=== PATIENT | male | born 1950 | race Caucasian/White ===

== ENCOUNTER 2018-02-13 12:33 | Inpatient (IN) | payer MEDICARE, OTHER ==
[~2018-02-13] VITALS: Ht 182.9 cm; Wt 90.7 kg
--- NOTE | ~2018-02-13 | MORECARE ---
CASE MANAGEMENT DISCHARGE SUMMARY PATIENT: CARY SAMANIEGO UNIT: [id number] ADM DATE: 02/13/18 AGE: 67 : 48 SEX: M ROOM/BED: D.2213 AUTHOR: NICKIE, POLITICAL CONSULTANT PHYSICIAN: REFERRING PHYSICIAN: MANISHA ARMSTRONG MD DATE OF SERVICE: 02/13/18 Discharge Plan Patient Name: CARY SAMANIEGO Facility: [facility]:[place] : 1950 Planned Disposition: Anticipated Discharge Date: Discharge Date: 02/16/2018 Expected LOS: 0 Initial Reviewer: [email or web address] Initial Review Date: 02/16/2018 Generated: 02/19/18 11:07 am Comments DCP- Discharge Planning Updated by [email or web address]: Julianna Zafar on 02/16/18 1:[address] CM contacted [facility] and patient to be admitted tomorrow. [facility] contacted for Walker and docs sent. Zeynep at [facility] will have walker sent to patients room at hospital. Home health will see patient tomorrow at his home. Docs faxed to [facility] and [facility]. CM will continue to follow and assist as needed with dc planning/needs. DCP- Discharge Planning Updated by [email or web address]: Julianna Zafar on 02/16/18 9:[address] patient choice form signed. Patient chose [facility] in [place]. CM spoke with Michelle at [facility] and faxed referral documents. Michelle states she will get back with CM after looking over referral. DCP- Discharge Planning Updated by [id number]: Julianna Zafar on 02/16/18 8:[address] Patient Name: CARY SAMANIEGO Admission Status: ER Accout number: [id number] Admission Date: 02-13-2018 : 1950 Admission Diagnosis: Attending: MANISHA ARMSTRONG Current LOS: 3 Anticipated DC Date: Planned Disposition: Primary Insurance: MEDICARE A & B Discharge Planning Comments: CM met with patient about discharge planning. Patient plans to discharge to home. States lives at home alone. States at time of discharge he will have a friend transport him home. He states his home environment is safe. He does have 2 steps going into house from garage. Patient will need rolling walker for home. Patient states he feels he may need home health when he gets home. States unable to go to outpatient physical therapy at this time. IMM explained and served to patient. CM will continue to follow and assist as needed with discharge planning/needs. Pit Operator: Julianna Zafra DCPIA - Discharge Planning Initial Assessment Updated by [email or web address]: Julianna Zafar on 02/16/18 9:39 am * Is the patient Alert and Oriented? Yes * How many steps to enterexit or inside your home? * PCP Pulig * Pharmacy Online pharmacy * Preadmission Environment Home Alone * ADLs Partial Dependent * Partial ADLs (Assistance needed) Ambulation * Equipment Glucometer Grab Bars * Other Equipment States needs walker for home. * List name and contact numbers for known caregivers / representatives who currently or will assist patient after discharge: Manisha Daniel, Friend, * Verbal permission to speak to the caregivers and representatives has been obtained from the patient. No * Community resources currently utilized None * Additional services required to return to the preadmission environment? Yes * Can the patient safely return to the preadmission environment? Yes * Has this patient been hospitalized within the prior 30 days at any hospital? No External [facility]iders [facility] Next Contact Date: Service Request Date: Service Type: Resolution: Reviewer: Comments: [facility] Next Contact Date: Service Request Date: Service Type: Resolution: Reviewer: Comments: [facility] Contact Date: Service Request Date: Service Type: Resolution: Reviewer: Comments: Coverage Notice Reviewer: [email or web address] Lanette Zafar Notice Issued Date-Time: 02/16/2018 9:39 Notice Type: IM Discharge Notice Notice Delivered To: Patient Relationship to Patient: Self Bandage Wrapping Machine Operator Name: Delivery Method: HAND - Hand Delivered Stefanie Days: Prior Verbal Notification: Recipient Understood Notice: Yes Recipient Signature: Yes Med Rec Note Co-signed by Attending: Coverage Notice Comment: Reviewer: [id number] Lanette Zafar Notice Issued Date-Time: 02/16/2018 14:38 Notice Type: Patient Choice Letter Notice Delivered To: Patient Relationship to Patient: Self Bandage Wrapping Machine Operator Name: Delivery Method: HAND - Hand Delivered Stefanie Days: Prior Verbal Notification: Recipient Understood Notice: Yes Recipient Signature: Yes Med Rec Note Co-signed by Attending: Coverage Notice Comment: [facility] chosen for home health. Patient Name: CARY SAMANIEGO Page [phone] All edits/amendments must be made on the electronic document DICTATION DATE: 02/19/18 1007 COMPOSITION WORKER: 02/19/18 1007 RPT#: [id number] DC DATE:02/16/18 STATUS: DIS IN [facility] [address] [place] [address] END OF REPORT
--- NOTE | ~2018-02-13 | OP ---
PATIENT NAME: CARY SAMANIEGO MEDICAL RECORD: [id number] :[birth year] LOCATION:D.MS [id number] ADMISSION DATE:02/13/18 SURGEON: LEO MONTIEL, DATE OF OPERATION: 02/13/2018 PROCEDURE PREFORMED: Left tibia intramedullary nailing. PREOPERATIVE DIAGNOSIS: Left open tibia and fibula fracture. It was a class 1 open. POSTOPERATIVE DIAGNOSIS: Left open tibia and fibula fracture. It was a class 1 open. INDICATIONS: Mr. Samaniego is a 67-year-old male who was at the shooting range today and he slipped with his right foot and his left foot twisted. He felt a crack in the side with his bone sticking out of the medial side of the tibia on the left. He was brought to the ER. X-rays were taken and seen to have a poke hole open, class 1 open tib-fib fracture in the distal shaft of the tibia and fibula. He was seen in the ER and admitted to primary care and then scheduled due to the open fracture. He was also given Ancef in the ER. After this, I saw him and consented for the procedure. He was aware of the risks and benefits including nonunion, malunion, infection due to the open fracture and also that he smokes. He would be a higher risk for nonunion and infection and he is a diabetic as well. He is aware of that and consented to the procedure. DESCRIPTION OF PROCEDURE: The patient was given a block preoperatively by anesthesia and taken to the operative suite, laid in the supine position. Left lower extremity was prepped and draped in sterile fashion. Tourniquet above the knee. Tourniquet was not inflated during the surgery. Once the patient was prepped and draped with Betadine, the timeout was performed. Then, the incision commenced at the knee just inferior to the patella. Careful dissection was made down to the paraTenon and patella and then that was incised and the patella was split right down the middle and the tibia was exposed. A starting point was then achieved just medial to the lateral tibial spine and on the anterior part of the tibial plateau. Then, the starting reamer was entered into the tibia and then the guide wire was passed down as reduction was held with a clamp and manually. Then, reaming commenced up to 10.5 and a 9 mm nail was measured to be 360 mm in length was put down in the tibia, reduced quite well and then a locking screw was put at the top and then distally did perfect circles, and the medial and lateral screw in the most distal holes. Then, we came back to the top to get to lateral to check, the fracture was nicely reduced, but the screw that went through the jig proximal tibia had missed posteriorly, so a freehanded drill hole through the tibial nail proximally and the set screw was set down through the tibial nail and then the screw was removed, the more distal screw that had missed the nail posteriorly, and the tibia was removed at that time. The wounds were then thoroughly irrigated and then closed the patellar tendon was closed with 0 Vicryl in a running fashion. The paraTenon in a [id number] fashion and then 2-0 Vicryl was run in an inverted interrupted pattern on the incision on the inferior part of the patella and then on the lateral side where the locking screws proximally were put and then a 4-0 Monocryl was put in a horizontal mattress fashion on each of the incisions as well as distally and at the open wound, which was thoroughly irrigated prior to closing the poke hole that was on the medial side of the distal tibia. This was closed with 4-0 Monocryl as well in a horizontal OPERATIVE REPORT [id number] CARY SAMANIEGO mattress fashion and this was cleaned thoroughly and then a Telfa and Tegaderm were placed over each of the wounds and the tibia was wrapped in a cast padding and a splint was put on the posterior tibia/posterior leg and then secured with an Jony wrap. The patient was then awakened and taken to the recovery in stable condition. Blood loss was approximately 200 mL. Complications were none. The patient will go to the floor and be admitted overnight for pain control. TRANSINT:[id number] Voice Confirmation ID: [id number] DOCUMENT ID: [id number] LEO MONTIEL DO at 1000 CC: [id number] DICTATION DATE: 02/13/182229 BUSINESS CONTROLLER: 02/14/18 0422 ADM IN [place] [id number] [place] [address]
[~2018-02-13 12:33] MED LIST: BAYER CHEWABLE81 MG PO; EFFIENT10 MG PO; GLUCOPHAGE850 MG PO; LISINOPRIL2.5 MG PO; PLAVIX75 MG PO; TOPROL XL25 MG PO; ZOCOR40 MG PO
[2018-02-13] MEDS ORDERED: LEVOXYL75 MCG PO (12:38)
[2018-02-13] MEDS ORDERED: GLUCOPHAGE1000 MG PO (12:39)
[2018-02-13] MEDS ORDERED: PLAVIX75 MG PO (12:39)
[2018-02-13 14:49] LABS: BASOPHILS 0.2 % (0-2); EOSINOPHILS 0.4 % (0-7); HEMATOCRIT 46.3 % (42.0-54.0); IMMATURE GRANULOCYTES 0.3 % (0-5); LYMPHOCYTES 11.6 % (15-50); MCH 30.7 pg (26.0-34.0); MCHC 34.6 g/dL (31.0-37.0); MCV 88.7 fL (80.0-100.0); MEAN PLATELET VOLUME 9.9 fL (7.4-10.4); MONOCYTES 7.7 % (2-11); NEUTROPHILS 79.8 % (40-80); PLATELET COUNT 196 10x3/uL (130-400); RBC 5.22 10x6/uL (4.20-6.10); RDW 13.8 % (11.5-14.5); WBC 11.4 10x3/uL (4.8-10.8)
[2018-02-13 15:09] LABS: ANION GAP 13.3 mmol/L (8-16); BILIRUBIN - TOTAL 0.4 mg/dL (0.2-1.3); CALCIUM 8.2 mg/dL (8.5-10.1); CARBON DIOXIDE 27.7 mmol/L (21.0-32.0); CREATININE - SERUM 1.1 mg/dL (0.6-1.3); PROTEIN - SERUM 7.3 g/dL (6.4-8.2)
[2018-02-13 15:42] LABS: APTT 26.4 SECONDS (22.8-39.4)
[2018-02-13 15:44] LABS: INR 0.99 (0.85-1.17); PROTIME 12.7 SECONDS (11.6-15.0)
[2018-02-13 16:35] VITALS: BP 154/64
[2018-02-13 17:28] VITALS: BP 154/64; BMI 27.2
[2018-02-13 21:44] VITALS: BP 131/79
[2018-02-14 05:30] LABS: BASOPHILS 0.2 % (0-2); EOSINOPHILS 0.1 % (0-7); HEMOGLOBIN 13.4 g/dL (13.5-17.5); IMMATURE GRANULOCYTES 0.2 % (0-5); MCHC 32.7 g/dL (31.0-37.0); MCV 88.7 fL (80.0-100.0); MEAN PLATELET VOLUME 9.7 fL (7.4-10.4); MONOCYTES 12.7 % (2-11); NEUTROPHILS 69.8 % (40-80); PLATELET COUNT 188 10x3/uL (130-400); RBC 4.62 10x6/uL (4.20-6.10); RDW 14.2 % (11.5-14.5); WBC 9.1 10x3/uL (4.8-10.8)
[2018-02-14 05:46] LABS: ALBUMIN 3.3 g/dL (3.4-5.0); ANION GAP 9.1 mmol/L (8-16); BILIRUBIN - TOTAL 0.53 mg/dL (0.2-1.3); CALCIUM 7.6 mg/dL (8.5-10.1); CARBON DIOXIDE 30.3 mmol/L (21.0-32.0); CREATININE - SERUM 1.1 mg/dL (0.6-1.3); POTASSIUM - SERUM 4.4 mmol/L (3.5-5.1); PROTEIN - SERUM 6.2 g/dL (6.4-8.2)
[2018-02-14 06:43] VITALS: BP 124/62
[2018-02-14 08:49] VITALS: BP 139/50
[2018-02-14 11:28] VITALS: BP 118/68
[2018-02-14 15:44] VITALS: Ht 182.9 cm; Wt 90.7 kg
[2018-02-14 16:05] VITALS: BP 111/43
[2018-02-14 20:30] VITALS: BP 133/46
[2018-02-15 04:30] VITALS: BP 138/61
[2018-02-15 06:51] LABS: BASOPHILS 0.2 % (0-2); EOSINOPHILS 0.6 % (0-7); HEMATOCRIT 37.2 % (42.0-54.0); HEMOGLOBIN 12.2 g/dL (13.5-17.5); IMMATURE GRANULOCYTES 0.1 % (0-5); LYMPHOCYTES 20.6 % (15-50); MCHC 32.8 g/dL (31.0-37.0); MCV 88.6 fL (80.0-100.0); MEAN PLATELET VOLUME 9.9 fL (7.4-10.4); MONOCYTES 16.1 % (2-11); NEUTROPHILS 62.4 % (40-80); PLATELET COUNT 178 10x3/uL (130-400); RDW 13.8 % (11.5-14.5); WBC 8.8 10x3/uL (4.8-10.8)
[2018-02-15 07:27] LABS: ALBUMIN 3.1 g/dL (3.4-5.0); ANION GAP 8.5 mmol/L (8-16); BILIRUBIN - TOTAL 0.64 mg/dL (0.2-1.3); CALCIUM 7.7 mg/dL (8.5-10.1); CARBON DIOXIDE 31.5 mmol/L (21.0-32.0); CREATININE - SERUM 1.2 mg/dL (0.6-1.3); PROTEIN - SERUM 6.2 g/dL (6.4-8.2)
[2018-02-15 09:10] VITALS: BP 123/56
[2018-02-15 14:32] VITALS: BP 145/62
[2018-02-15 17:00] VITALS: BP 146/67
[2018-02-15 20:30] VITALS: BP 134/86
[2018-02-16 00:44] VITALS: BP 133/59
[2018-02-16 05:02] VITALS: BP 145/59
[2018-02-16 05:46] LABS: BASOPHILS 0.3 % (0-2); EOSINOPHILS 1.1 % (0-7); HEMATOCRIT 35.4 % (42.0-54.0); HEMOGLOBIN 11.9 g/dL (13.5-17.5); IMMATURE GRANULOCYTES 0.1 % (0-5); LYMPHOCYTES 21.6 % (15-50); MCH 29.3 pg (26.0-34.0); MCHC 33.6 g/dL (31.0-37.0); MCV 87.2 fL (80.0-100.0); MEAN PLATELET VOLUME 9.7 fL (7.4-10.4); MONOCYTES 14.8 % (2-11); NEUTROPHILS 62.1 % (40-80); PLATELET COUNT 174 10x3/uL (130-400); RBC 4.06 10x6/uL (4.20-6.10); RDW 13.5 % (11.5-14.5); WBC 7.8 10x3/uL (4.8-10.8)
[2018-02-16 06:13] LABS: ALKALINE PHOSPHATASE 40 U/L (46-116); ALT (SGPT) 32 U/L (10-68); BILIRUBIN - TOTAL 0.67 mg/dL (0.2-1.3); CALC OSMOLALITY 274 mosm/kg (275-300); CALCIUM 7.9 mg/dL (8.5-10.1); CARBON DIOXIDE 26.7 mmol/L (21.0-32.0); CHLORIDE - SERUM 103 mmol/L (98-107); GLUCOSE 148 mg/dL (74-106); POTASSIUM - SERUM 3.8 mmol/L (3.5-5.1); PROTEIN - SERUM 6.2 g/dL (6.4-8.2); SODIUM 135 mmol/L (136-145); UREA NITROGEN 17 mg/dL (7-18); eGFR NON AFRICAN AMERICAN 79 mL/min (90-120)
[2018-02-16 09:12] VITALS: BP 131/65
[2018-02-16] MEDS ORDERED: OXYCODONE HCL5 MG PO (12:11)
[2018-02-16 12:52] VITALS: BP 135/53
== END 2018-02-16 17:08 | disposition home health service (06) | DRG 492 ==
LOC: D.ER 12:33 → D.EDHOLD 15:17 → D.MS 15:17
PROVIDERS: Family Medicine; Orthopaedic Surgery
PROC: 0QSK06Z Reposition Left Fibula with Intramedullary Internal Fixation Device, Open Approach (ICD-10-PCS; 2018-02-13)
PROC: 0QSH06Z Reposition Left Tibia with Intramedullary Internal Fixation Device, Open Approach (ICD-10-PCS; principal; 2018-02-13 12:45)
DX: S82.302B Unspecified fracture of lower end of left tibia, initial encounter for open fracture type I or II (principal); S82.832B Other fracture of upper and lower end of left fibula, initial encounter for open fracture type I or II; F17.213 Nicotine dependence, cigarettes, with withdrawal; W18.39XA Other fall on same level, initial encounter; E11.65 Type 2 diabetes mellitus with hyperglycemia; I10 Essential (primary) hypertension; I25.10 Atherosclerotic heart disease of native coronary artery without angina pectoris; Z95.5 Presence of coronary angioplasty implant and graft; I25.2 Old myocardial infarction

== ENCOUNTER → 2018-04-02 08:12 | Outpatient (CLI) | payer MEDICARE, OTHER ==
[2018-02-14 15:44] VITALS: BMI 27.1
[~2018-04-02 08:12] MED LIST changes: +GLUCOPHAGE1000 MG PO; +LEVOXYL75 MCG PO; +OXYCODONE HCL5 MG PO
== END | disposition home or self-care (01) ==
LOC: D.US 08:12
DX: R60.0 Localized edema (principal)

== ENCOUNTER → 2018-07-02 10:12 | Outpatient (CLI) | payer MEDICARE, OTHER ==
[2018-02-14 15:44] VITALS: BMI 27.1
[2018-07-02 18:18] LABS: BASOPHILS 0.5 % (0-2); EOSINOPHILS 2.1 % (0-7); HEMATOCRIT 47.6 % (42.0-54.0); HEMOGLOBIN 15.8 g/dL (13.5-17.5); IMMATURE GRANULOCYTES 0.2 % (0-5); LYMPHOCYTES 24.6 % (15-50); MCH 28.5 pg (26.0-34.0); MCHC 33.2 g/dL (31.0-37.0); MCV 85.9 fL (80.0-100.0); MEAN PLATELET VOLUME 10.3 fL (7.4-10.4); MONOCYTES 12.2 % (2-11); NEUTROPHILS 60.4 % (40-80); RBC 5.54 10x6/uL (4.20-6.10); WBC 6.3 10x3/uL (4.8-10.8)
[2018-07-02 18:33] LABS: PLATELET COUNT 242 10x3/uL (130-400)
[2018-07-02 19:25] LABS: ERYTHROCYTE SEDIMENTATION RATE 1 mm/hr (0-20)
== END | disposition home or self-care (01) ==
LOC: D.LABREF 10:12
PROVIDERS: Orthopaedic Surgery
DX: M25.572 Pain in left ankle and joints of left foot (principal)

== ENCOUNTER → 2018-07-09 12:25 | Outpatient (CLI) | payer MEDICARE, OTHER ==
[2018-02-14 15:44] VITALS: BMI 27.1
== END | disposition home or self-care (01) ==
LOC: D.CT 12:25
DX: S82.202A Unspecified fracture of shaft of left tibia, initial encounter for closed fracture (principal); X58.XXXA Exposure to other specified factors, initial encounter

== ENCOUNTER → 2021-01-15 08:56 | Outpatient (CLI) | payer MEDICARE, OTHER ==
[2018-02-14 15:44] VITALS: BMI 27.1
--- NOTE | ~2021-01-15 | ST ---
PATIENT:CARY SAMANIEGO MEDICAL RECORD: [id number] SEX: M LOCATION:[facility] ORDER #: ADMISSION DATE: 01/15/21 AGE OF PATIENT: 70 REFERRING PHYSICIAN: INTERPRETING PHYSICIAN: ROBERTO LNY MD DATE OF SERVICE: 01/15/2021 NUCLEAR STRESS TEST FINDINGS: Gated is normal with normal wall motion and normal wall thickening. Calculated EF 62%. SPECT IMAGING: SPECT imaging in short axis view shows a mixed defect along the inferior wall with a fixed defect from the inferior based on the mid inferior wall. There was significant reversibility along the inferior apex to apical region. This confirmed the horizontal axis with a mixed defect along the inferior wall, fixed from the inferior base down the mid inferior wall, but a significant reversibility from the inferior apex true apical region. VERTICAL AXIS: Vertical axis confirms apical reversible defect. FINAL RESULTS: 1. Normal gated, normal ejection fraction 62%. 2. Abnormal SPECT imaging with a mixed defect with significant reversibility along the inferior apical and true apical regions. FINAL RECOMMENDATIONS: This gentleman with known history of coronary artery disease. The scan is certainly concerning for recurrence of coronary artery disease with ongoing active ischemia. The defect severity is severe. Defect size is medium. Consider diagnostic angiography if clinically indicated. TRANSINT:[id number] Voice Confirmation ID: [id number] DOCUMENT ID: [id number] ROBERTO LYN MD CC: [id number] DICTATION DATE: 01/15/21 1646 BOTTLE GAUGER: 01/16/21 0942 DEP CLI 01/15/21 [facility] [address] [place] [address]
== END | disposition home or self-care (01) ==
LOC: D.HCCARDIO 08:56
PROVIDERS: ATTEND Internal Medicine Interventional Cardiology
DX: I25.10 Atherosclerotic heart disease of native coronary artery without angina pectoris (principal)